=== PATIENT | male | born 1970 | race Caucasian/White ===

== ENCOUNTER 2019-09-01 02:55 | Outpatient (CLI) | payer BC, SELFPAY ==
--- NOTE | 2019-09-01 10:30 | DI.MRI_ITS ---
EXAM: MR LUMBAR SPINE WO CLINICAL HISTORY: low back pain, M54.5. TECHNIQUE: Multiplanar multisequence MRI of the Lumbar spine was performed. COMPARISON: No exams were available for comparison FINDINGS: Bones: The last intervertebral disc space is designated the L5/S1 level for the numbering purpose of this examination. The vertebral body heights are well maintained. Alignment is satisfactory. The si gnal characteristics are unremarkable. Cord: The conus tip ends at the L1 level. It is of normal size and signal intensity. T12-L1: No disc herniations or bulges are present. L1-2: No disc herniations or bulges are present. L2-3: No disc herniations or bulges are present. L3-4: There is a small diffuse disc bulge. No focal disc herniation or significant central spinal c anal stenosis is seen. No neural foraminal stenosis is present. L4-5: There is a mild diffuse disc bulge eccentric to the left. No significant central spinal canal or neural foraminal stenosis is present. No focal disc herniation or significant central spinal lamin l stenosis is seen. There is no neural foraminal stenosis. L5-S1: There is a mild diffuse disc bulge. Soft tissues: The visualized SI joints and sacrum are well maintained. The paraspinal soft tissues ar e unremarkable. IMPRESSION: No evidence of significant spinal stenosis or neuroforaminal narrowing.
== END 2019-09-01 03:15 ==
PROVIDERS: PCP Family Medicine; Visit Provider Family Medicine
DX: M54.5 Low back pain (principal); M51.37 Other intervertebral disc degeneration, lumbosacral region
CPT/HCPCS: 72148

== ENCOUNTER 2020-07-19 15:54 | Outpatient (REF) | payer BC, SELFPAY ==
[2020-07-24 16:08] LABS: SARS-CoV-2 RNA Undetected (Undetected); SARS-CoV-2 Specimen Source Nasopharynx
== END 2020-07-19 16:14 ==
LOC: LBN 15:54
PROVIDERS: PCP Family Medicine; Visit Provider Nurse Practitioner Family
DX: J06.9 Acute upper respiratory infection, unspecified (principal); Z11.59 Encounter for screening for other viral diseases
CPT/HCPCS: 87449; U0003